=== PATIENT | male | born 1975 | race American Indian/Alaskan Native ===

== ENCOUNTER 2018-01-15 16:41 | Emergency (ER) | payer SELFPAY ==
[2018-01-15] MEDS ORDERED: NORVASC ONE (16:54)
[2018-01-15] MEDS ORDERED: APRESOLINE ONE (16:54)
[2018-01-15] MEDS ORDERED: NORVASC PO ONE (17:00)
[2018-01-15] MEDS ORDERED: APRESOLINE PO ONE (17:00)
[2018-01-15 17:20] LABS: Basophils # (Auto) 0.1 K/mm3 (0.0-0.1); Basophils % (Auto) 0.8 % (0.0-1.8); Eosinophils # (Auto) 0.2 K/mm3 (0.0-0.4); Eosinophils % (Auto) 2.1 % (0.0-4.3); Hematocrit 47.1 % (35.5-45.6); Hemoglobin 16.1 gm/dl (11.8-15.2); Lymphocytes # (Auto) 1.4 K/mm3 (1.2-5.4); Lymphocytes % (Auto) 14.4 % (13.4-35.0); Mean Corpuscular HGB Conc 34 % (32-34); Mean Corpuscular Hemoglobin 31 pg (28-32); Mean Corpuscular Volume 92 fl (84-94); Monocytes # (Auto) 0.8 K/mm3 (0.0-0.8); Monocytes % (Auto) 8.3 % (0.0-7.3); Platelet Count 211 K/mm3 (140-440); Red Blood Count 5.11 M/mm3 (3.65-5.03); Red Cell Distribution Width 13.3 % (13.2-15.2)
[2018-01-15 17:31] LABS: BUN/Creatinine Ratio 10; Blood Urea Nitrogen 12 mg/dL (9-20); Calcium 9.3 mg/dL (8.4-10.2); Hemolysis Index 10
[2018-01-15 20:26] LABS: Bilirubin,Urine NEG (Negative); Blood,Urine SM (Negative); Color,Urine Yellow (Yellow); Mucus,Urine FEW /HPF; Urobilinogen,Urine < 2.0 mg/dL (<2.0)
--- NOTE | 2018-01-15 23:42 | Emergency Department Report ---
ED General Adult HPI - General Chief complaint: High BP Stated complaint: HYPERTENSION Time Seen by Provider: 01/15/18 23:12 Source: patient Mode of arrival: Ambulatory Limitations: No Limitations - History of Present Illness Initial comments: Patient was applying for a new job and was getting a routine physical. They noted him to have elevated high blood pressure. So, they sent her to the ER for evaluation. Patient has no symptoms. He said 10 years ago he used to be on blood pressure meds, but then stopped taking them. He has not seen a family doctor since. - Related Data Previous Rx's Medication Instructions Recorded Last Taken Type amLODIPine [Norvasc] 10 mg PO DAILY #30 tab 01/15/18 Unknown Rx Allergies Allergy/AdvReac Type Severity Reaction Status Date / Time watermelon Allergy Swelling Verified 01/15/18 16:51 ED Review of Systems ROS: Stated complaint: HYPERTENSION Other details as noted in HPI Comment: All other systems reviewed and negative ED Past Medical Hx - Past Medical History Previous Medical History?: Yes Hx Hypertension: Yes - Surgical History Past Surgical History?: No - Social History Smoking Status: Current Every Day Smoker Substance Use Type: Alcohol - Medications Home Medications: Home Medications Medication Instructions Recorded Confirmed Last Taken Type amLODIPine [Norvasc] 10 mg PO DAILY #30 tab 01/15/18 Unknown Rx ED Physical Exam - General Limitations: No Limitations General appearance: alert, in no apparent distress - Head Head exam: Present: atraumatic, normocephalic - Eye Eye exam: Present: normal appearance - ENT ENT exam: Present: mucous membranes moist - Neck Neck exam: Present: normal inspection - Respiratory Respiratory exam: Present: normal lung sounds bilaterally. Absent: respiratory distress - Cardiovascular Cardiovascular Exam: Present: regular rate, normal rhythm. Absent: systolic murmur, diastolic murmur, rubs, gallop - GI/Abdominal GI/Abdominal exam: Present: soft, normal bowel sounds. Absent: distended, tenderness, guarding, rebound - Rectal Rectal exam: Present: deferred - Extremities Exam Extremities exam: Present: normal inspection - Back Exam Back exam: Present: normal inspection - Neurological Exam Neurological exam: Present: alert, oriented X3 - Psychiatric Psychiatric exam: Present: normal affect, normal mood - Skin Skin exam: Present: warm, dry, intact, normal color. Absent: rash ED Course Vital Signs 01/15/18 01/15/18 01/15/18 16:48 17:04 17:05 Temperature 97.8 F Pulse Rate 65 65 Respiratory 18 Rate Blood Pressure 266/127 214/126 Blood Pressure 236/128 [Left] Blood Pressure 214/126 [Right] O2 Sat by Pulse 99 Oximetry 01/15/18 19:49 Temperature Pulse Rate 89 Respiratory 18 Rate Blood Pressure Blood Pressure 221/109 [Left] Blood Pressure [Right] O2 Sat by Pulse 100 Oximetry ED Medical Decision Making - Lab Data Result diagrams: 01/15/18 17:04 01/15/18 17:04 - EKG Data -: EKG Interpreted by Me EKG shows normal: sinus rhythm, axis, intervals, QRS complexes, ST-T waves Rate: normal - EKG Data Interpretation: LVH - Medical Decision Making 43-year-old male with remote history of hypertension that presents with elevated blood pressure. Vital signs significant for elevated blood pressure with base systolic in the low 200s. Patient is asymptomatic. EKG shows evidence of LVH. Screening lab work is unremarkable. Patient's is having isn' t dramatic hypertension. He was given oral amlodipine and oral hydralazine in the ER. I do not think that the patient needs head imaging at this time since he is asymptomatic. He will be started on amlodipine to go home with and given referral to the [facility] for further management of his hypertension. Patient is cleared for discharge. - Differential Diagnosis malignant htn, drug induced, acs, ich, benign htn Critical care attestation.: If time is entered above; I have spent that time in minutes in the direct care of this critically ill patient, excluding procedure time. ED Disposition Clinical Impression: Hypertension Disposition: DC-01 TO HOME OR SELFCARE Is pt being admited?: No Does the pt Need Aspirin: No Condition: Stable Instructions: Hypertension (ED) Additional Instructions: Please follow up with the [facility] for further management of your hypertension in 1-2 weeks. Prescriptions: amLODIPine [Norvasc] 10 mg PO DAILY #30 tab Referrals: PRIMARY CARE, [Primary Care Provider] - 3-5 Days [facility] [Outside] - 3-5 Days
[2018-01-16 01:20] VITALS: BP 216/106
== END 2018-01-16 00:10 | disposition home or self-care (01) ==
LOC: ED 16:41
DX: I10 Essential (primary) hypertension (principal); Z91.018 Allergy to other foods; F17.200 Nicotine dependence, unspecified, uncomplicated
CPT/HCPCS: 36415; 80048; 81001; 84484; 85025; 93005; 93010; 99284